=== PATIENT | male | born 1990 | race Caucasian/White ===

== ENCOUNTER 2021-09-09 22:41 | Emergency (ER) | payer OTHER | END 2021-09-09 23:29 | disposition home or self-care (01) | LOC: CC.ED 22:41 | DX: J02.9 Acute pharyngitis, unspecified (principal); Z20.822 Contact with and (suspected) exposure to COVID-19 | CPT/HCPCS: 87430; 99283; U0002 ==

== ENCOUNTER 2022-09-13 11:00 | Emergency (ER) | payer OTHER ==
[2022-09-13] MEDS ORDERED: Sodium Chloride 0.9% 10 ML Syringe FLUSH PRN (11:51)
[2022-09-13] MEDS: Sodium Chloride 0.9% 1,000 ML IV ONE (12:00)
[2022-09-13 12:11] LABS: CORONAVIRUS COVID-19 NAA NEGATIVE (NEGATIVE); RESPIRATORY SYNCYTIAL VIR NAA NEGATIVE (NEGATIVE)
== END 2022-09-13 13:25 | disposition home or self-care (01) ==
LOC: CC.ED 11:00
DX: E86.0 Dehydration (principal); B34.9 Viral infection, unspecified; Z88.8 Allergy status to other drugs, medicaments and biological substances; Z20.822 Contact with and (suspected) exposure to COVID-19
CPT/HCPCS: 0241U; 36415; 80053; 81001; 85025; 96360; 99283-25; 99284; J7030

== ENCOUNTER 2022-10-17 09:17 | Emergency (ER) | payer OTHER ==
[2022-10-17] MEDS: Ketorolac 30 MG/ML SDV IVPUSH ONE ×2 (09:42→11:21)
[2022-10-17] MEDS: Iopamidol 755 Mg/ML 100 ML Bottle IVPUSH ONE (10:17)
[2022-10-17] MEDS: Dexamethasone 4 MG/ML SDV IVPUSH ONE (11:22)
== END 2022-10-17 11:50 | disposition home or self-care (01) ==
LOC: CC.ED 09:17
DX: S39.92XA Unspecified injury of lower back, initial encounter (principal); Z88.8 Allergy status to other drugs, medicaments and biological substances; W00.0XXA Fall on same level due to ice and snow, initial encounter; Y93.01 Activity, walking, marching and hiking
CPT/HCPCS: 36415; 74177; 80053; 85025; 96374; 96375; 96376; 99283; 99284-25; J1100; J1885; J3360; Q9967

== ENCOUNTER 2023-03-28 16:43 | Emergency (ER) | payer OTHER, BC ==
[2023-03-28] MEDS: Take Home: Azithromycin 250 MG, 2 Tab Pack PO ONE (17:02)
[2023-03-28] MEDS: Take Home: predniSONE 20 MG, 2 Tab Pack PO ONE (17:02)
[2023-03-28] MEDS ORDERED: Take Home: predniSONE 20 MG, 2 Tab Pack ONE (17:02)
== END 2023-03-28 17:11 | disposition home or self-care (01) ==
LOC: CC.ED 16:43
DX: J02.9 Acute pharyngitis, unspecified (principal); Z88.8 Allergy status to other drugs, medicaments and biological substances
CPT/HCPCS: 99282; 99283; A9270-GY; J7512

== ENCOUNTER 2023-10-19 14:31 | Emergency (ER) | payer OTHER ==
[2023-10-19] MEDS: Ketorolac 60 MG/2 ML SDV IM ONE (15:26)
== END 2023-10-19 16:00 | disposition home or self-care (01) ==
LOC: CC.ED 14:31
DX: J06.9 Acute upper respiratory infection, unspecified (principal); Z88.8 Allergy status to other drugs, medicaments and biological substances; Z79.899 Other long term (current) drug therapy
CPT/HCPCS: 87804; 96372; 99283; J1885; U0002

== ENCOUNTER 2024-01-07 07:28 | Emergency (ER) | payer OTHER, BC | END 2024-01-07 08:24 | disposition home or self-care (01) | LOC: CC.ED 07:28 | DX: S01.05XA Open bite of scalp, initial encounter (principal); Z88.8 Allergy status to other drugs, medicaments and biological substances; Z79.899 Other long term (current) drug therapy; W54.0XXA Bitten by dog, initial encounter | CPT/HCPCS: 12002; 99283 ==

== ENCOUNTER 2024-02-27 07:25 | Emergency (ER) | payer BC ==
[2024-02-27] MEDS: Ketorolac 30 MG/ML SDV IM ONE (08:08)
[2024-02-27] MEDS: Take Home: Cyclobenzaprine 10 MG Tab, 4 Tab Pack PO ONE (08:13)
== END 2024-02-27 08:23 | disposition home or self-care (01) ==
LOC: CC.ED 07:25
DX: S16.1XXA Strain of muscle, fascia and tendon at neck level, initial encounter (principal); S29.012A Strain of muscle and tendon of back wall of thorax, initial encounter; Z88.8 Allergy status to other drugs, medicaments and biological substances; Z79.899 Other long term (current) drug therapy; X58.XXXA Exposure to other specified factors, initial encounter
CPT/HCPCS: 96372; 99283; A9270-GY; J1885